=== PATIENT | male | born 1955 | race Caucasian/White ===

== ENCOUNTER 2016-10-28 14:06 | Emergency (ER) | payer MEDICAID ==
[~2016-10-28] VITALS: Ht 177.8 cm; Wt 104.3 kg
[2016-10-28 14:20] VITALS: BP 150/96
--- NOTE | 2016-10-28 15:57 | NUR ---
Patient to bed 03.
[2016-10-28 15:59] VITALS: BP 150/96
--- NOTE | 2016-10-28 16:00 | NUR ---
PATIENT PRESENTS TO ED WITH C/O COUGH X2 WEEKS . PT STATES HE HAS HX HTN, A-FIB, HYPOTHYROIDISM, GERD, KIDNEY STONES AND CROHN'S DISEASE . DENIES N/V/D; SKIN IS PINK/WARM/DRY; AAOX4 WITH EVEN AND STEADY GAIT; LUNGS CLEAR BL; HR EVEN AND REGULAR; PT DENIES ANY FEVER, CP, OR SOB AT THIS TIME; PATIENT STATES PAIN OF 7/10 AT THIS TIME; VSS; PATIENT POSITIONED FOR COMFORT; HOB ELEVATED; BEDRAILS UP X2; BED DOWN. ER MD MADE AWARE OF PT STATUS.
--- NOTE | 2016-10-28 16:02 | NUR ---
Radha.A.C. EVALUATING PT AT BEDSIDE.
[2016-10-28] MEDS ORDERED: methylPREDNISolone SS 125 MG in WATER STERILE 2 ML IM ONE (16:10)
[2016-10-28] MEDS ORDERED: ALBUTEROL SULFATE/IPRATROPIU 3 ML SOL IH ONE (16:10)
--- NOTE | 2016-10-28 16:22 | NUR ---
RT at bedside to give patient breathing treatment.
--- NOTE | 2016-10-28 16:59 | NUR ---
Patient discharged with v/s stable. Written and verbal after care instructions given and explained. Patient alert, oriented and verbalized understanding of instructions. Ambulatory with steady gait. All questions addressed prior to discharge. ID band removed. Patient advised to follow up with PMD. Rx of CODEINE PHOSPHATE/PROMETHAZINE HYDROCHLORIDE SYRUP, VENTOLIN MDI,PREDNISONE given. Patient educated on indication of medication including possible reaction and side effects. Opportunity to ask questions provided and answered.
== END 2016-10-28 16:59 | disposition home or self-care (01) ==
LOC: MED 14:06
DX: J20.9 Acute bronchitis, unspecified (principal); I48.91 Unspecified atrial fibrillation; I10 Essential (primary) hypertension; I50.9 Heart failure, unspecified
CPT/HCPCS: 71020; 94640; 96372; 99284; J2930

== ENCOUNTER 2017-10-03 13:35 | Emergency (ER) | payer MEDICAID ==
[~2017-10-03] VITALS: Ht 177.8 cm; Wt 111.8 kg
[2017-10-03 13:53] VITALS: BP 139/85
--- NOTE | 2017-10-03 14:00 | NUR ---
AMBULATED TO ER BED 9
--- NOTE | 2017-10-03 14:03 | NUR ---
xray at bedside
--- NOTE | 2017-10-03 14:05 | NUR ---
62Y/M C/O RT ELBOW S/P MEC FALL X 3WEEKS AGO. VSS; PATIENT POSITIONED FOR COMFORT; HOB ELEVATED; BEDRAILS UP X 1; BED DOWN. ER MD MADE AWARE OF PT STATUS.
--- NOTE | 2017-10-03 14:06 | NUR ---
Patient being evaluated by physician at bedside.
[2017-10-03] MEDS ORDERED: SYN.05 PO (14:21)
[2017-10-03] MEDS ORDERED: ATI.5 PO (14:21)
[2017-10-03] MEDS ORDERED: ACET-2619 PO (14:21)
[2017-10-03] MEDS ORDERED: RIVA20TA PO (14:21)
[2017-10-03] MEDS ORDERED: LEVO0.155 PO (14:21)
[2017-10-03] MEDS ORDERED: KEN.1C TP (14:21)
[2017-10-03] MEDS ORDERED: ASPI-1677 PO (14:21)
[2017-10-03] MEDS ORDERED: LISI10TA11 PO (14:21)
[2017-10-03] MEDS ORDERED: FURO-572 PO (14:21)
[2017-10-03] MEDS ORDERED: OMEP20TC PO (14:21)
[2017-10-03] MEDS ORDERED: ZOLP5TAB1 PO (14:21)
[2017-10-03] MEDS ORDERED: CARV25TA PO (14:21)
[2017-10-03] MEDS ORDERED: VITA1TAB44 PO (14:21)
[2017-10-03] MEDS ORDERED: TRAM50TA1 PO (14:21)
[2017-10-03] MEDS ORDERED: CARER90 PO (14:21)
[2017-10-03] MEDS ORDERED: LOTC TP (14:21)
[2017-10-03] MEDS ORDERED: LORA10TA19 PO (14:21)
[2017-10-03] MEDS ORDERED: ACETAMINOPHEN EXTRA STRENGTH 500 MG TAB PO ONE (14:30)
[2017-10-03 15:12] VITALS: BP 133/82
== END 2017-10-03 15:11 | disposition home or self-care (01) ==
LOC: MED 13:35
DX: S50.01XA Contusion of right elbow, initial encounter (principal); W06.XXXA Fall from bed, initial encounter; Y93.89 Activity, other specified; Y92.89 Other specified places as the place of occurrence of the external cause; Y99.8 Other external cause status; I48.91 Unspecified atrial fibrillation; K21.9 Gastro-esophageal reflux disease without esophagitis; I10 Essential (primary) hypertension; F41.9 Anxiety disorder, unspecified; Z79.899 Other long term (current) drug therapy; Z79.82 Long term (current) use of aspirin
CPT/HCPCS: 73080; 99284; Q0092

== ENCOUNTER 2019-03-23 18:46 | Emergency (ER) | payer MEDICAID ==
[~2019-03-23] VITALS: Ht 177.8 cm; Wt 108.9 kg
[~2019-03-23 18:46] MED LIST: ACET-2619 PO; ASPI-1884 PO; ATI.5 PO; CARER90 PO; CARV25TA PO; FURO-572 PO; KEN.1C TP; LEVO0.155 PO; LISI10TA11 PO; LORA10TA19 PO; LOTC TP; OMEP20TC PO; RIVA20TA PO; SYN.05 PO; TRAM50TA1 PO; VITA1TAB44 PO; ZOLP5TAB1 PO
[2019-03-23 19:18] VITALS: BP 124/91
--- NOTE | 2019-03-23 22:33 | NUR ---
PT AMBULATED TO BED 10
[2019-03-23 22:39] VITALS: BP 115/67
--- NOTE | 2019-03-23 22:39 | NUR ---
63 Y/O F PRESENTS TO ED WITH C/O SOB X3 DAYS. AAO. PT REPORTS BEING UNABLE TO SLEEP FLAT DURING THE NIGHT. PER PT " IT FEELS LIKE WHEN I'M TRYING TO SLEEP I'M DROWNING BECAUSE I CANT BREATHE." O2 SATURTION MAINTAINED AT 98% ON RA. BILATERAL LUNG DE [place] CLEAR. PT ABLE TO SPEAK FULL SENTENCES. WILL CONTINUE TO MONITOR.
== END 2019-03-23 23:30 | disposition home or self-care (01) ==
LOC: MED 18:46
DX: F41.9 Anxiety disorder, unspecified (principal); R42 Dizziness and giddiness; K21.9 Gastro-esophageal reflux disease without esophagitis; I10 Essential (primary) hypertension; E07.9 Disorder of thyroid, unspecified; Z79.82 Long term (current) use of aspirin; Z79.899 Other long term (current) drug therapy
CPT/HCPCS: 36600; 71045; 82803; 99284

== ENCOUNTER 2019-03-26 08:49 | Emergency (ER) | payer MEDICAID ==
[~2019-03-26] VITALS: Ht 177.8 cm; Wt 108.9 kg
[2019-03-26 08:59] VITALS: BP 102/68
--- NOTE | 2019-03-26 09:09 | NUR ---
PATIENT AMBULATED TO BED 6.
--- NOTE | 2019-03-26 09:22 | NUR ---
PT C/O LACERATION TO FORHEAD AND SKIN TEARS TO R HAND AND L ELBOW. BLEEDING IS CONTROLLED. PT REPORTS THAT HE LOST HIS BALANCE IN THE RESTROOM AND HIT HIS HEAD ON THE BATHROOM DOOR YESTERDAY. PT REPORTS A DULL PAIN FROM NOSE TO FOREHEAD, 8/10 AND PAIN TO THE MIDDLE OF HIS BACK. PT IS A AND O X4, AMBULATORY WITH STEADY GAIT, PT DENIES N/V SINCE TIME OF INCIDENT, AND PRESENTS WITH A CLEAR SPEECH. BED IN LOWEST POSITIOM, BED RAIL UP X 1 HX: AFIB, HTN, HYPOTHYROID RX: LEVOTHYROXINE, XARELTO NKA
--- NOTE | 2019-03-26 10:12 | NUR ---
PT RETURNED FROM CT VIA WHEELCHAIR
[2019-03-26] MEDS ORDERED: ACETAMINOPHEN 325 MG TAB ONE (10:54)
[2019-03-26] MEDS ORDERED: ACETAMINOPHEN 325 MG TAB PO ONE (10:55)
[2019-03-26 10:56] VITALS: BP 102/68
--- NOTE | 2019-03-26 10:56 | NUR ---
Patient discharged with v/s stable. Written and verbal after care instructions given and explained. Patient verbalized understanding. Ambulatory with steady gait. All questions addressed prior to discharge. Advised to follow up with PMD.
== END 2019-03-26 10:56 | disposition home or self-care (01) ==
LOC: MED 08:49
DX: S01.81XA Laceration without foreign body of other part of head, initial encounter (principal); S40.812A Abrasion of left upper arm, initial encounter; I48.91 Unspecified atrial fibrillation; K21.9 Gastro-esophageal reflux disease without esophagitis; I10 Essential (primary) hypertension; E03.9 Hypothyroidism, unspecified; Z98.890 Other specified postprocedural states; Z79.899 Other long term (current) drug therapy; Z79.01 Long term (current) use of anticoagulants; Z79.82 Long term (current) use of aspirin; W01.190A Fall on same level from slipping, tripping and stumbling with subsequent striking against furniture, initial encounter; Y92.89 Other specified places as the place of occurrence of the external cause; Y93.01 Activity, walking, marching and hiking; Y99.8 Other external cause status
CPT/HCPCS: 12013; 70450; 99284

== ENCOUNTER 2019-05-07 17:34 | Emergency (ER) | payer MEDICAID ==
[~2019-05-07] VITALS: Ht 177.8 cm; Wt 116.1 kg
[2019-05-07 17:40] VITALS: BP 154/90
--- NOTE | 2019-05-07 17:48 | NUR ---
PT AMBULATED TO BED 3.
--- NOTE | 2019-05-07 18:13 | NUR ---
Sada casarezdiana in EDM - 05/07/19 at 1823 by MEDAD C/O SOB AND COUGH X 3 DAYS, DENIES FEVER, N/V/D. O2 SAT RA 99 PERCINT . HX: AFIB, HTN, HYPOTHYROID RX: XARELTO, LEVOTHYROXINE,
--- NOTE | 2019-05-07 18:22 | NUR ---
C/O SOB AND PRODUCTIVE COUGH X 3 DAYS, DENIES FEVER, N/V/D. O2 SAT RA 97 . LUNGS CLEAR BILATERALLY ,RESPIRATION EVEN AND UNLABORED. PT DENIES PAIN ,V/S STABLE ,PT AWAKE ,ALERT , AMBULATORY ,STEADY GAIT. HX: AFIB, HTN, HYPOTHYROID RX: XARELTO, LEVOTHYROXINE,
--- NOTE | 2019-05-07 18:23 | NUR ---
pt has multiple abrasions to face from previous injuries
--- NOTE | 2019-05-07 18:35 | NUR ---
freezer laboratory technician at bedside.
--- NOTE | 2019-05-07 18:35 | NUR ---
EKG completed by at bedside by EMT.
--- NOTE | 2019-05-07 18:46 | NUR ---
DR GHOTRA AT BEDSIDE
--- NOTE | 2019-05-07 18:56 | NUR ---
RT AT BEDSIDE FOR BREATHING TX
[2019-05-07] MEDS: IPRATROPIUM 0.02% 0.5 MG/2.5 ML NEBU INH ONE (18:57)
[2019-05-07] MEDS: ALBUTEROL 0.083% 2.5 MG/3 ML NEBU INH ONE (18:57)
--- NOTE | 2019-05-07 19:10 | NUR ---
RECIEVED REPORT FROM DEEPAK RUBIO. PATIENT SITTING UP IN BED RECIEVING BREATHING TREATMENT, RT AT BEDSIDE.
--- NOTE | 2019-05-07 19:27 | NUR ---
FLU SWAB COLLETED AND SENT TO LAB.
[2019-05-07 19:41] LABS: BASOPHILS # (AUTO) 0.1 K/uL (0.00-0.22); BASOPHILS % (AUTO) 1.1 % (0.0-2.0); EOSINOPHILS # (AUTO) 0.3 K/uL (0-0.4); EOSINOPHILS % (AUTO) 4.8 % (0.0-4.0); HEMOGLOBIN 12.4 g/dL (12.0-18.0); LYMPHOCYTES % (AUTO) 14.1 % (20.5-51.1); MEAN CORPUSCULAR HEMOGLOBIN 35 pg (27-31); MEAN CORPUSCULAR HGB CONC 33 g/dL (33-37); MEAN CORPUSCULAR VOLUME 106.8 fL (80-94); MONOCYTES # (AUTO) 0.6 K/uL (0.8-1.0); MONOCYTES % (AUTO) 9.2 % (1.7-9.3); NEUTROPHILS % (AUTO) 70.8 % (42.2-75.2); PLATELET COUNT (AUTO) 269 K/uL (140-450); RED BLOOD CELL COUNT(AUTO) 3.56 MIL/uL (4.20-6.10); RED CELL DISTRIBUTION WIDTH 15.4 % (11.6-13.7)
[2019-05-07 19:54] LABS: ANION GAP 13.3 (8-16); CARBON DIOXIDE 28.9 mmol/L (21-32); CREATININE 2.7 mg/dL (0.7-1.3); POTASSIUM 5.2 mmol/L (3.5-5.1)
[2019-05-07 19:56] LABS: PROTHROMBIN TIME 9.7 secs (10.8-13.4)
[2019-05-07 19:59] LABS: TOTAL BILIRUBIN 0.4 mg/dL (0.0-1.0)
--- NOTE | 2019-05-07 20:25 | NUR ---
PATIENT STANDING AT BEDSIDE. INSTRUCTED TO SIT, REFUSED. VSS ON MONITOR.
--- NOTE | 2019-05-07 20:55 | NUR ---
DR MONIQUE AT BEDSIDE.
[2019-05-07] MEDS: SODIUM ZIRCONIUM CYCLOSILICATE 10 GM POWD.PACK PO ONE (21:06)
[2019-05-07 21:23] VITALS: BP 124/87
--- NOTE | 2019-05-07 21:24 | NUR ---
Patient discharged with v/s stable. Written and verbal after care instructions given and explained. Patient alert, oriented and verbalized understanding of instructions. Ambulatory with steady gait. All questions addressed prior to discharge. ID band removed. Patient advised to follow up with PMD. Rx of Mucinex given. Patient educated on indication of medication including possible reaction and side effects. Opportunity to ask questions provided and answered.
== END 2019-05-07 21:24 | disposition home or self-care (01) ==
LOC: MED 17:34
DX: I48.91 Unspecified atrial fibrillation (principal); R05 Cough; R06.00 Dyspnea, unspecified; K21.9 Gastro-esophageal reflux disease without esophagitis; I10 Essential (primary) hypertension; E07.9 Disorder of thyroid, unspecified; Z98.890 Other specified postprocedural states; Z86.79 Personal history of other diseases of the circulatory system; Z79.899 Other long term (current) drug therapy; Z79.82 Long term (current) use of aspirin
CPT/HCPCS: 36415; 71045; 80053; 83880; 84484; 85025; 85610; 85730; 87804; 93005; 94640; 99284; J7613; J7644; Q0092

== ENCOUNTER 2019-05-10 14:17 | Emergency (ER) | payer MEDICAID ==
[~2019-05-10] VITALS: Ht 177.8 cm; Wt 111.1 kg
[2019-05-10 14:29] VITALS: BP 115/70
--- NOTE | 2019-05-10 14:35 | NUR ---
PT AMBULATED TO BED 06.
--- NOTE | 2019-05-10 14:46 | NUR ---
C/O COUGH X 1 WEEK. SEEN HERE 05/07/19 FOR BROCHITIS. COUGH WAS PRODUCTIVE ON/AROUND 05/07/19 THEN GRADUALLY BECOME NON-PRODUCTIVE COUGH. C/O SOB, SHALLOW BREATHING, ORTHOPNEA. 99% RA AT THIS TIME. MED HX: L WRIST SURGERY, C2 - C7 FUSION, HTN, HYPOTHYROID, AFIB, BRONCHITIS
--- NOTE | 2019-05-10 14:48 | NUR ---
DR. MORGAN EVALUATING PT AT BEDSIDE.
[2019-05-10] MEDS ORDERED: ALBUTEROL SULFATE/IPRATROPIU 3 ML SOL IH ONE (15:00)
[2019-05-10] MEDS ORDERED: methylPREDNISolone SS 125 MG/2 ML VIAL IVP ONE (15:00)
--- NOTE | 2019-05-10 15:04 | NUR ---
xray at bedside
--- NOTE | 2019-05-10 15:20 | NUR ---
chief cruiser at bedside
--- NOTE | 2019-05-10 15:23 | NUR ---
RT AT BEDSIDE FOR RESPIRATORY INTERVENTION.
--- NOTE | 2019-05-10 15:32 | NUR ---
PT STATES PRIOR TO BREATHING TX HE WAS ONLY ABLE TO TAKE IN "QUARTER BREATH" BUT NOW AFTER THE BREATHING TX HE IS ABLE TO TAKE "THREE QUARTERS TO FULL BREATH". PT STATES HE FEELS MUCH BETTER.
[2019-05-10 15:52] LABS: CREATININE 2.9 mg/dL (0.7-1.3)
[2019-05-10 15:55] LABS: BASOPHILS # (AUTO) 0.1 K/uL (0.00-0.22); BASOPHILS % (AUTO) 1.1 % (0.0-2.0); EOSINOPHILS # (AUTO) 0.3 K/uL (0-0.4); EOSINOPHILS % (AUTO) 4.3 % (0.0-4.0); HEMOGLOBIN 11.9 g/dL (12.0-18.0); LYMPHOCYTES % (AUTO) 16.1 % (20.5-51.1); MEAN CORPUSCULAR HEMOGLOBIN 34 pg (27-31); MEAN CORPUSCULAR HGB CONC 32 g/dL (33-37); MONOCYTES # (AUTO) 0.7 K/uL (0.8-1.0); NEUTROPHILS # (AUTO) 4.4 K/uL (1.8-7.7); NEUTROPHILS % (AUTO) 67.5 % (42.2-75.2); PLATELET COUNT (AUTO) 258 K/uL (140-450); RED BLOOD CELL COUNT(AUTO) 3.46 MIL/uL (4.20-6.10); RED CELL DISTRIBUTION WIDTH 15.6 % (11.6-13.7); WHITE BLOOD COUNT (AUTO) 6.5 K/uL (4.8-10.8)
[2019-05-10 15:59] LABS: ALBUMIN 3.1 g/dL (3.4-5.0); TOTAL BILIRUBIN 0.5 mg/dL (0.0-1.0)
[2019-05-10 16:18] LABS: APPEARANCE,URINE CLEAR (CLEAR); BILIRUBIN,URINE NEGATIVE (NEGATIVE); BLOOD, URINE NEGATIVE (NEGATIVE); COLOR,URINE YELLOW (YELLOW); LEUKOCYTE ESTERASE ,URINE NEGATIVE (NEGATIVE); NITRITE, URINE NEGATIVE (NEGATIVE); UGLUCOSE NEGATIVE (NEGATIVE)
[2019-05-10] MEDS ORDERED: FUROSEMIDE 40 MG/4 ML VIAL IVP ONE (16:35)
--- NOTE | 2019-05-10 16:57 | NUR ---
DR. MORGAN SPEAKING WITH PATIENT AT BEDSIDE
[2019-05-10 17:18] VITALS: BP 126/75
--- NOTE | 2019-05-10 17:18 | NUR ---
Patient discharged with v/s stable. Written and verbal after care instructions given and explained. Patient alert, oriented and verbalized understanding of instructions. Ambulatory with steady gait. All questions addressed prior to discharge. ID band removed. Patient advised to follow up with PMD. Rx of PREDNISONE AND ALBUTEROL given. Patient educated on indication of medication including possible reaction and side effects. Opportunity to ask questions provided and answered.
== END 2019-05-10 17:18 | disposition home or self-care (01) ==
LOC: MED 14:17
DX: R06.02 Shortness of breath (principal); R05 Cough; I50.9 Heart failure, unspecified; K21.9 Gastro-esophageal reflux disease without esophagitis; I10 Essential (primary) hypertension; E07.9 Disorder of thyroid, unspecified; Z79.82 Long term (current) use of aspirin; Z79.899 Other long term (current) drug therapy
CPT/HCPCS: 36415; 71045; 80053; 81003; 83880; 84484; 85025; 87804; 93005; 96374; 96375; 99284; J1940; J2930; J7620; Q0092

== ENCOUNTER 2019-09-24 18:36 | Emergency (ER) | payer MEDICAID, OTHER ==
[~2019-09-24] VITALS: Ht 177.8 cm; Wt 111.1 kg
[2019-09-24 18:48] VITALS: BP 146/98
--- NOTE | 2019-09-24 18:53 | NUR ---
WAIT AT TENT.
--- NOTE | 2019-09-24 19:08 | NUR ---
64 Y/O MALE C/O COUGH AND SOB X1 WEEK WITH LAST 3 DAYS AT ITS WORST. O2SAT 91% @ RA. RR UNLABORED. PRODUCTIVE COUGH. PT HAS HX OF PNEUMONIA, HTN, AND AFIB. HE STATES BRONCHITIS X2 IN THE PAST 4 MONTHS. HE IS REQUESTING MD EVALUATION FOR RESPIATORY STATUS. PT SPEAKS IN FULL SENTENCES. NO SOB/DYSPNEA AT THIS TIME. NO DISTRESS NOTED. SOME LABORED BREATHING WHEN EXERTING HIMSELF. WHILE AT REST, RR STATUS UNLOBORED. ER MD AWARE. PT IN CHAIR IN TENT. CONTINUE TO MONITOR.
--- NOTE | 2019-09-24 19:08 | NUR ---
FLU SWAB COLLECTED
--- NOTE | 2019-09-24 19:50 | NUR ---
PT STATES NOW, "FEELING HEAVY," WITH BREATHING. PT APPEARS MILDLY ANXIOUS. DR KELLEY MADE AWARE. CONTINUE TO MONITOR.
--- NOTE | 2019-09-24 19:51 | NUR ---
DR KELLEY INSTRUCTED TO MOVE PATIENT FROM TENT TO BED 1.
--- NOTE | 2019-09-24 19:53 | NUR ---
PT MOVED TO ER BED 1
[2019-09-24] MEDS ORDERED: methylPREDNISolone SS 125 MG in WATER STERILE 2 ML IVP ONE (20:00)
[2019-09-24] MEDS ORDERED: MAG SULF 2000 MG/WATER PREMIX 50 ML IV ONE (20:00)
[2019-09-24] MEDS ORDERED: ALBUTEROL 0.083% 2.5 MG/3 ML NEBU INH ONE ×2 (20:00)
[2019-09-24] MEDS ORDERED: IPRATROPIUM 0.02% 0.5 MG/2.5 ML NEBU INH ONE (20:00)
[2019-09-24] MEDS ORDERED: methylPREDNISolone SS 125 MG/2 ML VIAL ONE (20:05)
[2019-09-24] MEDS ORDERED: WATER STERILE 10 ML MC ONE (20:05)
[2019-09-24 21:10] LABS: BASOPHILS # (AUTO) 0.1 K/uL (0.00-0.22); BASOPHILS % (AUTO) 1.6 % (0.0-2.0); EOSINOPHILS # (AUTO) 0.1 K/uL (0-0.4); EOSINOPHILS % (AUTO) 1.7 % (0.0-4.0); HEMATOCRIT 36.2 % (36-52); HEMOGLOBIN 11.7 g/dL (12.0-18.0); LYMPHOCYTES # (AUTO) 0.8 K/uL (2.0-11.5); LYMPHOCYTES % (AUTO) 14.1 % (20.5-51.1); MEAN CORPUSCULAR HEMOGLOBIN 34 pg (27-31); MEAN CORPUSCULAR HGB CONC 32 g/dL (33-37); MEAN CORPUSCULAR VOLUME 105.3 fL (80-94); MONOCYTES # (AUTO) 0.9 K/uL (0.8-1.0); MONOCYTES % (AUTO) 15.6 % (1.7-9.3); PLATELET COUNT (AUTO) 266 K/uL (140-450); RED BLOOD CELL COUNT(AUTO) 3.44 MIL/uL (4.20-6.10)
[2019-09-24] MEDS ORDERED: AMLO5TAB PO (21:38)
[2019-09-24] MEDS ORDERED: AMLO2.5T PO (21:38)
[2019-09-24] MEDS ORDERED: LOSA25TA32 PO (21:38)
[2019-09-24] MEDS ORDERED: RANI-745 PO (21:38)
[2019-09-24] MEDS ORDERED: CYAN250013 PO (21:38)
[2019-09-24] MEDS ORDERED: VITB1I (21:38)
--- NOTE | 2019-09-24 21:45 | NUR ---
PT REPORTS FEELING BETTER AFTER BREATHING TX AND IV MAG. STATES HE DOES NOT WANT TO BE ADMITTED. DR KELLEY AWARE AND WILL D/C PATIENT.
--- NOTE | 2019-09-24 22:11 | NUR ---
Patient discharged with v/s stable. Written and verbal after care instructions given and explained. Patient alert, oriented and verbalized understanding of instructions. Ambulatory with steady gait. All questions addressed prior to discharge. ID band removed. Patient advised to follow up with PMD. Rx of PREDNISONE, ALBUTEROL, ADVAIR DISK given. Patient educated on indication of medication including possible reaction and side effects. Opportunity to ask questions provided and answere BY DR KELLEY. PT D/C BY DR KELLEY.
[2019-09-24 22:45] VITALS: BP 146/98
[2019-09-25 04:43] LABS: ALBUMIN 3.4 g/dL (3.4-5.0); ANION GAP 16.2 (8-16); CARBON DIOXIDE 24.9 mmol/L (21-32); CREATININE 2.6 mg/dL (0.6-1.3); POTASSIUM 5.1 mmol/L (3.5-5.1); TOTAL BILIRUBIN 0.7 mg/dL (0.0-1.0)
== END 2019-09-24 22:11 | disposition home or self-care (01) ==
LOC: MED 18:36
DX: J44.1 Chronic obstructive pulmonary disease with (acute) exacerbation (principal); E07.9 Disorder of thyroid, unspecified; I10 Essential (primary) hypertension; I51.89 Other ill-defined heart diseases; K21.9 Gastro-esophageal reflux disease without esophagitis; Z79.899 Other long term (current) drug therapy
CPT/HCPCS: 36415; 71045; 80053; 85025; 87040; 87804; 94640; 96365; 96375; 99284; J2930; J3475; J7613; J7644; Q0092

== ENCOUNTER 2019-09-27 16:57 | Emergency (ER) | payer OTHER, SELFPAY ==
[~2019-09-27] VITALS: Ht 177.8 cm; Wt 111.1 kg
[~2019-09-27 16:57] MED LIST changes: -ACET-2619 PO; +AMLO2.5T PO; +AMLO5TAB PO; -ASPI-1884 PO; -ATI.5 PO; -CARER90 PO; +CYAN250013 PO; -LISI10TA11 PO; +LOSA25TA32 PO; -OMEP20TC PO; +RANI-745 PO; -TRAM50TA1 PO; -VITA1TAB44 PO; +VITB1I
[2019-09-27 17:10] VITALS: BP 144/72
--- NOTE | 2019-09-27 17:10 | NUR ---
Pt screened for covid-19, triaged
--- NOTE | 2019-09-27 17:10 | NUR ---
Pt wearing mask
--- NOTE | 2019-09-27 18:10 | NUR ---
CXR AT BEDSIDE
--- NOTE | 2019-09-27 18:16 | NUR ---
GROUP LEADER SEMICONDUCTOR PROCESSING AT BEDSIDE FOR BLOOD DRAW
--- NOTE | 2019-09-27 18:17 | NUR ---
C/O SOB x2 weeks, worsening. WAS SEEN HERE A FEW DAYS AGO FOR COUGH, STATES COUGH HAS BEEN DECREASING, PT REFUSED ADMISSION AT THAT TIME. SOB IS EXERTIONAL. STATES MILD SOB AT REST, AFTER SPEAKING. Spo2 92% on RA, RR 24. was seen here 5 days ago, pt refused admission. denies fever/chills or CP. reports chronic BL hand and feet pain. PT APPEARS SLIGHTLY SOB WITH MINOR POSITION CHANGES IN GURNEY. SPEAKING IN FULL CLEAR SENTENCES. Hx a.fib, thyroid problem, kidney problem, spinal fusion, L shoulder surgery, carpal tunnel, COPD rx xarelto
[2019-09-27 18:21] LABS: BASOPHILS % (AUTO) 0.2 % (0.0-2.0); HEMATOCRIT 35.4 % (36-52); HEMOGLOBIN 11.6 g/dL (12.0-18.0); LYMPHOCYTES # (AUTO) 0.4 K/uL (2.0-11.5); LYMPHOCYTES % (AUTO) 5.3 % (20.5-51.1); MEAN CORPUSCULAR HEMOGLOBIN 35 pg (27-31); MEAN CORPUSCULAR HGB CONC 33 g/dL (33-37); MONOCYTES # (AUTO) 0.7 K/uL (0.8-1.0); MONOCYTES % (AUTO) 8.7 % (1.7-9.3); NEUTROPHILS % (AUTO) 85.8 % (42.2-75.2); PLATELET COUNT (AUTO) 287 K/uL (140-450); RED BLOOD CELL COUNT(AUTO) 3.34 MIL/uL (4.20-6.10); RED CELL DISTRIBUTION WIDTH 15.2 % (11.6-13.7); WHITE BLOOD COUNT (AUTO) 8.2 K/uL (4.8-10.8)
--- NOTE | 2019-09-27 18:21 | NUR ---
PT WILL TRY TO PROVIDE URINE SAMPLE VIA URINAL
--- NOTE | 2019-09-27 18:25 | NUR ---
EMT AT BEDSIDE FOR EKG
[2019-09-27 18:33] LABS: C-REACTIVE PROTEIN QUANT 0.4 mg/dL (0.0-0.9)
[2019-09-27 18:35] LABS: PROTHROMBIN TIME 13.1 secs (10.8-13.4)
[2019-09-27 18:38] LABS: LACTATE DEHYDROGENASE 261 U/L (85-227)
--- NOTE | 2019-09-27 19:13 | NUR ---
REPORT TO SHANNAN RUBIO
--- NOTE | 2019-09-27 19:14 | NUR ---
ENDORSED NOVEL CORONAVIRUS SWAB TO SHANNAN RUBIO
--- NOTE | 2019-09-27 19:15 | NUR ---
RECEIVED REPORT FROM RAMIRO GORDON FOR CONTINUITY OF CARE.
[2019-09-27] MEDS ORDERED: DILTIAZEM 25 MG/5 ML VIAL IVP ONE ×2 (19:25→20:45)
[2019-09-27] MEDS ORDERED: IPRATROPIUM 0.02% 0.5 MG/2.5 ML NEBU INH ONE (19:25)
[2019-09-27] MEDS ORDERED: NACL 0.9% 500 ML IV ONE (19:25)
[2019-09-27] MEDS ORDERED: ALBUTEROL HFA MDI 90 MCG/ACTUATION 8 GM INH ONE ×2 (19:25→21:00)
[2019-09-27] MEDS ORDERED: methylPREDNISolone SS 125 MG/2 ML VIAL IVP ONE (19:30)
[2019-09-27 19:41] LABS: ALBUMIN 3.7 g/dL (3.4-5.0); ANION GAP 16.7 (8-16); CARBON DIOXIDE 23.3 mmol/L (21-32); CREATININE 2.5 mg/dL (0.6-1.3); TOTAL BILIRUBIN 0.8 mg/dL (0.0-1.0)
--- NOTE | 2019-09-27 20:20 | NUR ---
COVID SWAB DONE AND WALKED OVER TO LAB.
[2019-09-27 20:34] LABS: APPEARANCE,URINE CLEAR (CLEAR); BILIRUBIN,URINE NEGATIVE (NEGATIVE); BLOOD, URINE NEGATIVE (NEGATIVE); COLOR,URINE YELLOW (YELLOW); LEUKOCYTE ESTERASE ,URINE NEGATIVE (NEGATIVE); NITRITE, URINE NEGATIVE (NEGATIVE); UGLUCOSE NEGATIVE (NEGATIVE)
--- NOTE | 2019-09-27 21:00 | NUR ---
PATIENT PULLED IV OUT. PT FRUSTRATED, YELLING, WANTS TO LEAVE AMA. REQUESTING TO HAVE ANOTHER BREATHING TREATMENT BEFORE LEAVING. DR. GANDHI MADE AWARE.
--- NOTE | 2019-09-27 21:05 | NUR ---
DR. GANDHI SPOKE TO PT REGARDING RISK OF AND WORSENING OF SYMPTOMS IN REGARDS TO LEAVING AMA.
--- NOTE | 2019-09-27 21:10 | NUR ---
BREATHING TREATMENT RECEIVED.
--- NOTE | 2019-09-27 21:16 | NUR ---
AMA FORM AND DISCHARGE PAPERWORKS SIGNED BY PT.
--- NOTE | 2019-09-27 21:16 | NUR ---
Patient does not wish to proceed with medical care recommended by DR. GANDHI. Patient given information related to possible complications, up to and including , which could occur as a result of leaving hospital at this time. Patient verbalizes understanding of risks involved leaving against medical advice. Patient has signed AMA form. Gave discharge intstrustions as well, and instructions on prescribed medications.
[2019-09-27 21:19] VITALS: BP 133/101
== END 2019-09-27 21:16 | disposition left against medical advice (07) ==
LOC: EEVIPCON 16:57 → MED 16:57
DX: J44.1 Chronic obstructive pulmonary disease with (acute) exacerbation (principal); Z03.818 Encounter for observation for suspected exposure to other biological agents ruled out; K21.9 Gastro-esophageal reflux disease without esophagitis; I10 Essential (primary) hypertension; E07.9 Disorder of thyroid, unspecified; Z79.899 Other long term (current) drug therapy
CPT/HCPCS: 36415; 71045; 80053; 81003; 82550; 82553; 82728; 83605; 83615; 83880; 84484; 85025; 85379; 85384; 85610; 85730; 86140; 87040; 87086; 87635; 93005; 96374; 96375; 99285; J2930; J3490; J7030; Q0092